=== PATIENT | female | born 1990 | race Caucasian/White ===

== ENCOUNTER 2017-03-04 23:31 | Emergency (ER) | payer BC, OTHER ==
[2017-03-05] MEDS: NS 1,000 ML IV (00:45)
[2017-03-05] MEDS: ONDANSETRON 4MG/2ML VIAL (J2405) IV (00:45)
[2017-03-05 01:29] LABS: BASO % 0.2 % (0.0-1.0); EOS # 0.1 10^3/uL (0.0-0.50); EOS % 1.8 % (0.0-3.0); HEMATOCRIT 38.5 % (36.0-47.0); HEMOGLOBIN 12.9 g/dl (12.0-16.0); IMMATURE GRANULOCYTE % 0.4 % (0-0); LYMPH # 1.3 10^3/uL (1.5-6.5); LYMPH % 28.6 % (24.0-44.0); MEAN CORPUSCULAR HEMOGLOBIN 30.2 pg (27.0-33.0); MEAN CORPUSCULAR HGB CONC 33.5 g/dl (32.0-36.5); MEAN CORPUSCULAR VOLUME 90.2 fl (80.0-96.0); MONO # 0.3 10^3/uL (0.0-0.8); NEUTROPHILS # 2.8 10^3/uL (1.8-7.7); PLATELET COUNT, AUTOMATED 168 10^3/uL (150-450); RED BLOOD COUNT 4.27 10^6/uL (4.00-5.40); RED CELL DISTRIBUTION WIDTH 12.7 % (11.5-14.5); WHITE BLOOD COUNT 4.6 10^3/uL (4.0-10.0)
[2017-03-05] MEDS: MORPHINE 2 MG/ML 1ML SYRINGE IV (01:32)
[2017-03-05 02:02] LABS: ALBUMIN 3.8 GM/DL (3.2-5.2); ALBUMIN/GLOBULIN RATIO 1.06 (1.00-1.93); ALKALINE PHOSPHATASE 83 U/L (45-117); ALT/SGPT 23 U/L (12-78); ANION GAP 6 MEQ/L (8-16); AST/SGOT 15 U/L (7-37); BILIRUBIN,DIRECT < 0.1 MG/DL (0.0-0.2); BILIRUBIN,TOTAL 0.3 MG/DL (0.2-1.0); BLOOD UREA NITROGEN 12 MG/DL (7-18); CALCIUM LEVEL 8.2 MG/DL (8.5-10.1); CARBON DIOXIDE LEVEL 28 MEQ/L (21-32); CHLORIDE LEVEL 105 MEQ/L (98-107); CREATININE FOR GFR 0.68 MG/DL (0.55-1.02); GLOMERULAR FILTRATION RATE > 60.0 (>60); GLUCOSE, FASTING 82 MG/DL (70-105); LIPASE 75 U/L (73-393); POTASSIUM SERUM 3.3 MEQ/L (3.5-5.1); SODIUM LEVEL 139 MEQ/L (136-145); TOTAL PROTEIN 7.4 GM/DL (6.4-8.2)
[2017-03-05] MEDS ORDERED: ISOVUE-370 76% 100ML VIAL (Q9967) As Ordered (02:11)
[2017-03-05 02:26] LABS: AMORPHOUS SEDIMENT RFX SMALL (NEGATIVE); KETONE, URINE AUTO RFX TRACE mg/dL (NEGATIVE); LEUKOCYTE ESTERASE UR AUTO RFX 2+ (NEGATIVE); MUCUS, URINE RFX LARGE (NEGATIVE); NITRITE, URINE AUTO RFX POSITIVE (NEGATIVE); RBC, URINE AUTO RFX 58 /HPF (0-3); SPECIFIC GRAVITY UR AUTO RFX 1.028 (1.002-1.035); SQUAM EPITHELIAL CELL UR AURFX 2 /HPF (0-6); WBC, URINE AUTO RFX 40 /HPF (0-3)
[2017-03-05 06:09] LABS: CHLAMYDIA DNA AMPLIFICATION NEGATIVE (NEGATIVE); GC DNA AMPLIFICATION NEGATIVE (NEGATIVE)
== END 2017-03-05 04:52 | disposition home or self-care (01) ==
LOC: M ED 23:31
DX: K52.9 Noninfective gastroenteritis and colitis, unspecified (principal); R76.11 Nonspecific reaction to tuberculin skin test without active tuberculosis; Z79.899 Other long term (current) drug therapy; F17.210 Nicotine dependence, cigarettes, uncomplicated
CPT/HCPCS: J2405

== ENCOUNTER 2017-11-26 07:11 | Day surgery (SDC) | payer BC, OTHER ==
[~2017-11-26 07:11] MED LIST: LIDOCAINE 2% INJ 100 MG/5 ML SDV (FOR ANES.) As Ordered; PROPOFOL 200 MG/20 ML VIAL As Ordered; SIMETHICONE 40MG/0.6ML DROPS 30ML As Ordered
[2017-11-26] MEDS: NS 1,000 ML IV (07:23)
[2017-11-26] MEDS ORDERED: PROPOFOL 200 MG/20 ML VIAL As Ordered (07:50)
== END 2017-11-26 08:34 | disposition home or self-care (01) ==
LOC: M OPP 07:11
DX: R19.7 Diarrhea, unspecified (principal); R93.3 Abnormal findings on diagnostic imaging of other parts of digestive tract; K59.00 Constipation, unspecified; K64.8 Other hemorrhoids; K21.9 Gastro-esophageal reflux disease without esophagitis; R12 Heartburn; F17.210 Nicotine dependence, cigarettes, uncomplicated; Z79.899 Other long term (current) drug therapy; Z80.1 Family history of malignant neoplasm of trachea, bronchus and lung
CPT/HCPCS: 45380

== ENCOUNTER → 2018-06-27 | Outpatient (CLI) | payer BC, OTHER ==
[~2018-06-27] MED LIST changes: +ATIV1TAB10 PO; +COLA100C5 PO; +ISON100I PO; -LIDOCAINE 2% INJ 100 MG/5 ML SDV (FOR ANES.) As Ordered; +MACR100C43 PO; -PROPOFOL 200 MG/20 ML VIAL As Ordered; -SIMETHICONE 40MG/0.6ML DROPS 30ML As Ordered; +VARE1TA PO; +VITA100054 PO; +VITA50TA43 PO; +ZOFR4TAB14 PO
[2018-06-27 16:54] LABS: BASO # 0.1 10^3/uL (0.0-0.2); BASO % 0.6 % (0.0-1.0); EOS # 0.2 10^3/uL (0.0-0.50); EOS % 2.5 % (0.0-3.0); HEMATOCRIT 40.1 % (36.0-47.0); HEMOGLOBIN 13.3 g/dl (12.0-15.5); LYMPH # 2.3 10^3/uL (1.5-6.5); LYMPH % 26.8 % (24.0-44.0); MEAN CORPUSCULAR HGB CONC 33.2 g/dl (32.0-36.5); MEAN CORPUSCULAR VOLUME 87.6 fl (80.0-96.0); MONO # 0.7 10^3/uL (0.0-0.8); NEUTROPHILS # 5.3 10^3/uL (1.8-7.7); NEUTROPHILS % 61.7 % (36.0-66.0); PLATELET COUNT, AUTOMATED 256 10^3/uL (150-450); RED BLOOD COUNT 4.58 10^6/uL (4.00-5.40); WHITE BLOOD COUNT 8.5 10^3/uL (4.0-10.0)
[2018-06-27 17:18] LABS: ALBUMIN 3.6 GM/DL (3.2-5.2); ALT/SGPT 34 U/L (12-78); BILIRUBIN,TOTAL 0.2 MG/DL (0.2-1.0); BLOOD UREA NITROGEN 13 MG/DL (7-18); CALCIUM LEVEL 8.9 MG/DL (8.5-10.1); CARBON DIOXIDE LEVEL 29 MEQ/L (21-32); CHLORIDE LEVEL 107 MEQ/L (98-107); CREATININE FOR GFR 0.72 MG/DL (0.55-1.30); GLOMERULAR FILTRATION RATE > 60.0 (>60); GLUCOSE, FASTING 92 MG/DL (70-100); POTASSIUM SERUM 3.9 MEQ/L (3.5-5.1); SODIUM LEVEL 142 MEQ/L (136-145); TOTAL PROTEIN 7.2 GM/DL (6.4-8.2)
--- NOTE | 2018-06-28 07:58 | REP ---
Clinical: Dyspnea. Technique: Axial noncontrast images from the thoracic inlet to the upper abdomen with coronal and sagittal re-formations. Findings: The bilateral lung martínez are relatively symmetric, well aerated, and clear. No consolidation, effusion, or pneumothorax. Tracheobronchial tree is patent and without bronchiectasis. There is a 2.5 mm noncalcified nodule along the periphery of the left lung (image 53). No further nodule or mass lesion identified. Mediastinum demonstrates normal thoracic aorta, pulmonary vasculature and heart/pericardium. No obvious axillary, hilar, or mediastinal adenopathy. Surrounding musculoskeletal structures are intact and normal. Impression: 1. No obvious acute pleuroparenchymal process. 2. 2.5 mm noncalcified nodule along the periphery of the left lung likely insignificant and may represent small chronic scar. Based on set criteria, low-risk patient is require no further investigation while high risk patient may warrant annual follow-up CT. Electronically Signed by Reji Varma MD 06/28/2018 07:48 A
== END ==
LOC: M RAD 15:17
PROVIDERS: ATTEND Internal Medicine
DX: R76.11 Nonspecific reaction to tuberculin skin test without active tuberculosis (principal); R06.00 Dyspnea, unspecified

== ENCOUNTER → 2018-10-13 | Outpatient (CLI) | payer BC, OTHER ==
[2018-10-13 09:23] LABS: THYROID STIMULATING HORMONE 3.71 uIU/ML (0.358-3.740)
[2018-10-13 10:55] LABS: ESTRADIOL 1031.3 PG/ML
[2018-10-13 11:17] LABS: PROGESTERONE 52.89 NG/ML
== END ==
LOC: M LAB 08:19
PROVIDERS: ATTEND Obstetrics & Gynecology Reproductive Endocrinology
DX: E28.9 Ovarian dysfunction, unspecified (principal)

== ENCOUNTER → 2018-10-20 | Outpatient (CLI) | payer BC, OTHER ==
[2018-10-20 09:40] LABS: HCG, SERUM QUANTITATIVE < 1.0 MIU/ML
[2018-10-20 10:03] LABS: PROGESTERONE 50.56 NG/ML
== END ==
LOC: M LAB 08:27
PROVIDERS: ATTEND Obstetrics & Gynecology Reproductive Endocrinology
DX: Z32.00 Encounter for pregnancy test, result unknown (principal)

== ENCOUNTER → 2019-01-04 | Outpatient (CLI) | payer BC, OTHER ==
[2019-01-04 19:15] LABS: BASO # 0.1 10^3/uL (0.0-0.2); BASO % 0.7 % (0.0-1.0); EOS # 0.2 10^3/uL (0.0-0.5); HEMATOCRIT 39.8 % (36.0-47.0); HEMOGLOBIN 12.5 g/dl (12.0-15.5); LYMPH # 2.6 10^3/uL (1.5-5.0); LYMPH % 30.6 % (24.0-44.0); MEAN CORPUSCULAR HEMOGLOBIN 28.2 pg (27.0-33.0); MEAN CORPUSCULAR HGB CONC 31.4 g/dl (32.0-36.5); MEAN CORPUSCULAR VOLUME 89.6 fl (80.0-96.0); MONO # 0.6 10^3/uL (0.0-0.8); MONO % 7.5 % (0.0-5.0); NEUTROPHILS % 58.7 % (36.0-66.0); PLATELET COUNT, AUTOMATED 273 10^3/uL (150-450); RED BLOOD COUNT 4.44 10^6/uL (4.00-5.40); WHITE BLOOD COUNT 8.6 10^3/uL (4.0-10.0)
[2019-01-04 20:16] LABS: ALBUMIN 3.6 GM/DL (3.2-5.2); ALT/SGPT 44 U/L (12-78); BILIRUBIN,TOTAL 0.2 MG/DL (0.2-1.0); BLOOD UREA NITROGEN 11 MG/DL (7-18); CALCIUM LEVEL 8.2 MG/DL (8.5-10.1); CARBON DIOXIDE LEVEL 26 MEQ/L (21-32); CHLORIDE LEVEL 105 MEQ/L (98-107); CREATININE FOR GFR 0.76 MG/DL (0.55-1.30); GLOMERULAR FILTRATION RATE > 60.0 (>60); GLUCOSE, FASTING 86 MG/DL (70-100); IRON (FE) 51 UG/DL (50-170); SODIUM LEVEL 139 MEQ/L (136-145); TOTAL 25(OH) VITAMIN D 19.2 NG/ML (30.0-100.0); VITAMIN B12 LEVEL 439 PG/ML (247-911)
== END ==
LOC: M LAB 17:48
PROVIDERS: ATTEND Internal Medicine
DX: E55.9 Vitamin D deficiency, unspecified (principal); R53.83 Other fatigue

== ENCOUNTER 2019-04-14 16:09 | Emergency (ER) | payer BC, OTHER ==
[~2019-04-14] VITALS: Ht 160 cm; Wt 85.0 kg
[2019-04-14] MEDS ORDERED: VITA50005 (16:17)
[2019-04-14] MEDS ORDERED: MELO15TA28 (16:17)
[2019-04-14] MEDS ORDERED: LEVO50TA5 (16:17)
[2019-04-14 17:29] LABS: APPEARANCE, URINE HAZY (CLEAR); BACTERIA, URINE AUTO NEGATIVE (NEGATIVE); BILIRUBIN, URINE AUTO NEGATIVE (NEGATIVE); BLOOD, URINE BLOOD 3+ (NEGATIVE); COLOR, URINE YELLOW (YELLOW); GLUCOSE, URINE (UA) AUTO NEGATIVE (NEGATIVE); KETONE, URINE AUTO NEGATIVE (NEGATIVE); LEUKOCYTE ESTERASE, URINE AUTO NEGATIVE (NEGATIVE); MUCUS, URINE SMALL (NEGATIVE); NITRITE, URINE AUTO NEGATIVE (NEGATIVE); PROTEIN, URINE AUTO NEGATIVE (NEGATIVE); RBC, URINE AUTO 45 /HPF (0-3); SQUAMOUS EPITHELIAL CELL UR AU 2 /HPF (0-6); UROBILINOGEN, URINE AUTO 0.2 mg/dL (0.0-2.0); WBC, URINE AUTO 1 /HPF (0-3)
[2019-04-14] MEDS ORDERED: NS 1,000 ML IV ONE (18:00)
[2019-04-14] MEDS ORDERED: ONDANSETRON 4MG/2ML VIAL (J2405) IV ONE (18:00)
[2019-04-14] MEDS ORDERED: KETOROLAC 30 MG/ML VIAL (J1885) IV ONE (18:00)
[2019-04-14] MEDS ORDERED: PANTOPRAZOLE 40MG INJ (PROTONIX) (C9113) IV ONE (18:00)
[2019-04-14 18:23] LABS: BASO % 0.3 % (0.0-1.0); EOS # 0.1 10^3/uL (0.0-0.5); EOS % 0.9 % (0.0-3.0); HEMATOCRIT 42.5 % (36.0-47.0); HEMOGLOBIN 13.8 g/dl (12.0-15.5); LYMPH % 14.5 % (24.0-44.0); MEAN CORPUSCULAR HEMOGLOBIN 27.9 pg (27.0-33.0); MEAN CORPUSCULAR HGB CONC 32.5 g/dl (32.0-36.5); MONO # 0.3 10^3/uL (0.0-0.8); MONO % 3.8 % (0.0-5.0); NEUTROPHILS # 5.5 10^3/uL (1.5-8.5); NEUTROPHILS % 80.2 % (36.0-66.0); PLATELET COUNT, AUTOMATED 205 10^3/uL (150-450); RED BLOOD COUNT 4.94 10^6/uL (4.00-5.40); WHITE BLOOD COUNT 6.8 10^3/uL (4.0-10.0)
[2019-04-14 18:48] LABS: ALBUMIN 3.9 GM/DL (3.2-5.2); ALT/SGPT 32 U/L (12-78); BILIRUBIN,DIRECT 0.2 MG/DL (0.0-0.2); BILIRUBIN,TOTAL 0.5 MG/DL (0.2-1.0); BLOOD UREA NITROGEN 11 MG/DL (7-18); CALCIUM LEVEL 8.5 MG/DL (8.5-10.1); CARBON DIOXIDE LEVEL 26 MEQ/L (21-32); CHLORIDE LEVEL 104 MEQ/L (98-107); CREATININE FOR GFR 0.74 MG/DL (0.55-1.30); GLOMERULAR FILTRATION RATE > 60.0 (>60); GLUCOSE, FASTING 84 MG/DL (70-100); LIPASE 50 U/L (73-393); POTASSIUM SERUM 3.3 MEQ/L (3.5-5.1); SODIUM LEVEL 138 MEQ/L (136-145); TOTAL PROTEIN 7.3 GM/DL (6.4-8.2)
[2019-04-14 18:52] LABS: INR 1.07; PROTHROMBIN TIME 13.7 SECONDS (11.8-14.0)
--- NOTE | 2019-04-14 19:26 | REP ---
ABDOMINAL SERIES: Supine and erect views of the abdomen demonstrate no free air. There is no definite evidence of obstruction. Mild air is scattered throughout the colon. A few mildly dilated small bowel loops are seen in the left upper quadrant, possibly representing a mild focal ileus. No abnormal calcifications are seen. An frontal view of the chest demonstrates no acute infiltrate. Heart and mediastinum are within normal limits. IMPRESSION: No free air and no definite evidence for small bowel obstruction. A few mildly dilated small bowel loops in the left upper quadrant may represent a mild focal ileus. Electronically Signed by Rafael Berry MD 04/14/2019 07:28 P
[2019-04-14] MEDS ORDERED: ZOFR4TAB16 PO (19:30)
[2019-04-14 20:00] VITALS: BP 97/54
[2019-04-14] MEDS ORDERED: ONDANSETRON 4 MG ORAL DISINTEGRATING TAB (Q0162 PER 1MG) PO ONE (20:15)
== END 2019-04-14 20:10 | disposition home or self-care (01) ==
LOC: M ED 16:09
DX: A08.4 Viral intestinal infection, unspecified (principal); J45.909 Unspecified asthma, uncomplicated; Z79.899 Other long term (current) drug therapy; F17.210 Nicotine dependence, cigarettes, uncomplicated
CPT/HCPCS: 74021; 80048; 80076; 81001; 83690; 85025; 85610; 96361; 96374; 96375; 99284; C9113; J1885; J2405; Q0162

== ENCOUNTER 2019-11-17 19:01 | Emergency (ER) | payer OTHER, BC ==
[~2019-11-17] VITALS: Ht 160 cm; Wt 75.0 kg
[~2019-11-17 19:01] MED LIST changes: +LEVO50TA5; +MELO15TA28; +VITA50005; +ZOFR4TAB16 PO
[2019-11-17] MEDS ORDERED: DIAZ2TAB PO (19:09)
[2019-11-17] MEDS ORDERED: IRON1TAB2 PO (19:09)
[2019-11-17] MEDS ORDERED: CYCL-707 PO (19:09)
--- NOTE | 2019-11-17 20:00 | REPVR ---
PROCEDURE INFORMATION: Exam: XR Right Hand Exam date and time: 11/17/2019 7:56 PM Age: 28 years old Clinical indication: Pain; Hand; Right; Additional info: Trauma TECHNIQUE: Imaging protocol: XR Right hand. Views: 3 or more views. COMPARISON: No relevant prior studies available. FINDINGS: Bones/joints: Normal. Soft tissues: Normal. IMPRESSION: No acute findings. Electronically signed by: John Dye On 11/17/2019 20:00:40 PM
[2019-11-17 20:32] VITALS: BP 116/72
== END 2019-11-17 20:34 | disposition home or self-care (01) ==
LOC: M ED 19:01
DX: M79.641 Pain in right hand (principal); F17.200 Nicotine dependence, unspecified, uncomplicated; Z79.899 Other long term (current) drug therapy

== ENCOUNTER 2019-12-16 11:50 | Emergency (ER) | payer BC, OTHER ==
[~2019-12-16] VITALS: Ht 160 cm; Wt 77.0 kg
[~2019-12-16 11:50] MED LIST changes: +CYCL-707 PO; +DIAZ2TAB PO; +IRON1TAB2 PO
[2019-12-16 13:15] LABS: BASO % 0.5 % (0.0-1.0); EOS # 0.1 10^3/uL (0.0-0.5); EOS % 1.6 % (0.0-3.0); HEMOGLOBIN 13.8 g/dl (12.0-15.5); LYMPH # 2.2 10^3/uL (1.5-5.0); LYMPH % 25.7 % (24.0-44.0); MEAN CORPUSCULAR HGB CONC 31.4 g/dl (32.0-36.5); MEAN CORPUSCULAR VOLUME 89.4 fl (80.0-96.0); MONO # 0.5 10^3/uL (0.0-0.8); MONO % 5.5 % (0.0-5.0); NEUTROPHILS # 5.8 10^3/uL (1.5-8.5); NEUTROPHILS % 66.5 % (36.0-66.0); PLATELET COUNT, AUTOMATED 279 10^3/uL (150-450); RED BLOOD COUNT 4.92 10^6/uL (4.00-5.40); WHITE BLOOD COUNT 8.7 10^3/uL (4.0-10.0)
[2019-12-16 13:43] LABS: INFLUENZA A AMPLIFICATION NEGATIVE (NEGATIVE); INFLUENZA B AMPLIFICATION NEGATIVE (NEGATIVE)
[2019-12-16 13:49] LABS: ALBUMIN 3.7 GM/DL (3.2-5.2); ALT/SGPT 12 U/L (12-78); BLOOD UREA NITROGEN 6 MG/DL (7-18); CALCIUM LEVEL 10.3 MG/DL (8.5-10.1); CARBON DIOXIDE LEVEL 18 MEQ/L (21-32); CHLORIDE LEVEL 108 MEQ/L (98-107); CK-MB VALUE MASS < 1.0 NG/ML (<3.6); CPK CREATINE PHOSPHOKINASE 34 U/L (26-192); CREATININE FOR GFR 0.35 MG/DL (0.55-1.30); GLOMERULAR FILTRATION RATE > 60.0 (>60); GLUCOSE, FASTING 78 MG/DL (70-100); MB/CK RELATIVE INDEX 2.94 (< OR =4); POTASSIUM SERUM 3.7 MEQ/L (3.5-5.1); SODIUM LEVEL 142 MEQ/L (136-145); TOTAL PROTEIN 6.9 GM/DL (6.4-8.2); TROPONIN I < 0.02 NG/ML (< 0.10)
--- NOTE | 2019-12-16 13:55 | REP ---
INDICATION: cough, sob. COMPARISON: April 14, 2019.. TECHNIQUE: Portable AP sitting view. FINDINGS: The lungs are well inflated and clear. No infiltrate is seen. Pleural angles are sharp. Heart is not enlarged. Pulmonary vasculature is not increased. No significant bony abnormality. IMPRESSION: Negative portable chest x-ray. <Electronically signed by Lance Alexander > 12/16/19 [id number]
[2019-12-16] MEDS ORDERED: ISOVUE-370 76% 100ML VIAL As Ordered ONE (14:18)
[2019-12-16 14:36] VITALS: O2SAT 98
--- NOTE | 2019-12-16 14:54 | REP ---
INDICATION: sob, elevated dimer, r/o PE. COMPARISON: Comparison is made with noncontrast chest CT June 27, 2018.. TECHNIQUE: Contrast dose: 75 ML of Isovue [address] technique: Helical scanning is acquired and overlapping 1.5 mm and contiguous 3 mm axial images are reformatted. In addition, maximum intensity projection and multiplanar re-formation images are generated in sagittal and coronal imaging projections. FINDINGS: There is good opacification of the pulmonary arterial tree. There is no CT evidence of pulmonary embolus. Maximum intensity projection images and source axial images show no vessel cut off or filling defect. There is no evidence of pleural or pericardial effusion. No hilar or mediastinal mass or adenopathy is observed. Lung martínez are clear. There is a 4 mm noncalcified pulmonary nodule in the left lower lobe. This is displayed on axial image number 44 of 87 and series 702 of today's study. no other pulmonary nodules seen. No mass lesion is observed. Bone window settings show no bony destructive lesion. Normal adrenal glands are seen. The visualized upper abdominal structures are otherwise unremarkable. IMPRESSION: No acute disease. No CT evidence of pulmonary embolus. Single 4 mm noncalcified nodule in the left lower lobe of the lung likely granulomatous. This is unchanged from the June 27, 2018 study. Otherwise normal. <Electronically signed by Lance Alexander > 12/16/19 [id number]
[2019-12-16] MEDS ORDERED: MACR100C43 PO (15:14)
[2019-12-16 15:16] LABS: BILIRUBIN,TOTAL < 0.1 MG/DL (0.2-1.0)
[2019-12-16 15:20] VITALS: BP 128/68
--- NOTE | 2019-12-16 21:59 | ECGEPIP ---
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
--- NOTE | 2019-12-20 15:21 | ED PDOC ---
Post-Departure Follow-Up called patient to update on negative COVID-19 test. Pt expressed good understand ing, all questions addressed. EMILIA FISHER TAYLOR E. PA-C Dec 20, 2019 15:21
== END 2019-12-16 15:29 | disposition home or self-care (01) ==
LOC: M ED 11:50
DX: J06.9 Acute upper respiratory infection, unspecified (principal); N39.0 Urinary tract infection, site not specified; R91.1 Solitary pulmonary nodule; K58.9 Irritable bowel syndrome, unspecified; M26.629 Arthralgia of temporomandibular joint, unspecified side
CPT/HCPCS: 36415; 71045; 71275; 80053; 81001; 82550; 82553; 84484; 84702; 85025; 85379; 87088; 87186; 87631; 87880; 93005; 99284; Q9967; U0003

== ENCOUNTER 2020-02-21 14:32 | Emergency (ER) | payer BC, OTHER ==
[~2020-02-21] VITALS: Ht 160 cm; Wt 75.0 kg
[2020-02-21] MEDS ORDERED: ACETAMINOPHEN 325 MG TAB PO ONE (15:30)
[2020-02-21 15:56] VITALS: BP 108/64
== END 2020-02-21 17:07 | disposition home or self-care (01) ==
LOC: M ED 14:32
DX: U07.1 COVID-19 (principal); Z77.098 Contact with and (suspected) exposure to other hazardous, chiefly nonmedicinal, chemicals

== ENCOUNTER → 2020-03-04 | Outpatient (CLI) | payer BC, OTHER ==
--- NOTE | 2020-03-05 09:56 | ECHO ---
DATE OF PROCEDURE: 03/04/2020 Age: 29 Gender: Female Height: 160 Weight: 74 kg REFERRING PHYSICIAN: Reji Ellington M.D. INDICATION: Tachycardia, COVID-19. MEASUREMENTS: IVS 0.8 cm LV 4.2 cm LVPW 0.8 cm LA 3.0 cm Aorta 2.7 cm RV 2.9 cm IVC 0.9 cm DOPPLER MEASUREMENT Mitral E wave velocity 96 Mitral A wave 25 E prime septal 11.0 E prime lateral 13.7 Left atrial volume index 18 mL/m2 FINDINGS: This study is of good technical quality. Underlying sinus rhythm. Normal LV size with normal LV systolic function, estimated LVEF around 60%. The right ventricle also appears to have normal size and systolic function. Both atria appear normal. All four cardiac valves are well seen and appear normal. No pericardial effusion is present. Inferior vena cava is of relatively small size and completely obliterates with inspiration indicative of normal or low central venous pressure. Aortic root, aortic arch, and visualized segment of the abdominal aorta all appear normal. Doppler interrogation reveals competent aortic, mitral, tricuspid, and pulmonic valves. Mitral inflow pattern and tissue Doppler imaging of the mitral annulus reveals normal diastolic function. CONCLUSIONS: 1. Study is of good technical quality. Underlying sinus rhythm with narrow QRS complex. 2. Normal LV size, systolic and diastolic function. 3. Normal RV size and systolic function. 4. No valvular disease. 5. Normal or low central venous pressure. 6. Unable to estimate pulmonary artery pressure, but no signs to suggest pulmonary hypertension. 7. Normal echocardiogram. MTDD
== END ==
LOC: M CARPUL 09:42
PROVIDERS: ATTEND Internal Medicine
DX: U07.1 COVID-19 (principal); R00.0 Tachycardia, unspecified

== ENCOUNTER → 2020-03-06 | Outpatient (CLI) | payer BC, OTHER ==
--- NOTE | 2020-03-07 10:38 | REP ---
INDICATION: DYSPNEA COMPARISON: 12/16/2019 TECHNIQUE: PA and lateral. FINDINGS: The mediastinum and cardiac silhouette are normal. The lung martínez are clear and without acute consolidation, effusion, or pneumothorax. The skeletal structures are intact and normal. IMPRESSION: No acute cardiopulmonary process. <Electronically signed by Reji Varma > 03/07/20 1039
== END ==
LOC: M RAD 12:42
PROVIDERS: ATTEND Internal Medicine
DX: R06.00 Dyspnea, unspecified (principal); U07.1 COVID-19

== ENCOUNTER → 2020-04-03 | Outpatient (CLI) | payer BC, OTHER ==
[~2020-04-03] MED LIST changes: +ISOVUE-370 76% 100ML VIAL As Ordered ONE
--- NOTE | 2020-04-03 10:04 | REP ---
INDICATION: DYSPNEA, TACHYCARDIA. Fatigue. Dyspnea after COVID. COMPARISON: Comparison chest x-ray 06 March 2020. Comparison chest CT study 16 December 2019.. TECHNIQUE: Helical scanning is acquired following the intravenous injection of 75 mL of Isovue 370. Axial 3 mm images are re-formatted. Coronal and sagittal MPR and coronal MIP images are provided. FINDINGS: Digital preliminary customer success associate radiograph is unremarkable. On axial CT images, the lung martínez are well inflated and free of infiltrate. There is a stable benign 4 mm perifissural nodule in the left lower lobe unchanged from [address] No other pulmonary nodule is seen. No lung mass lesion is observed. No pleural or pericardial effusion is seen. No hilar or mediastinal mass or adenopathy is observed. There is good opacification of the pulmonary arterial tree and there is no CT evidence of pulmonary embolus. The thoracic aorta is normal in course caliber and homogeneous and contrast enhancement. There is mild diffuse fatty infiltration of the liver. Normal adrenal glands are seen. The visualized upper abdominal structures are otherwise unremarkable. No extra thoracic mass or adenopathy is seen. No bony destructive lesion is seen. IMPRESSION: No active cardiopulmonary disease. Mild diffuse fatty infiltration of the liver. <Electronically signed by Lance Alexander > 04/03/20 1000
== END ==
LOC: M RAD 09:25
PROVIDERS: ATTEND Internal Medicine
DX: K76.0 Fatty (change of) liver, not elsewhere classified (principal); R00.0 Tachycardia, unspecified; R06.00 Dyspnea, unspecified
CPT/HCPCS: 71260; Q9967

== ENCOUNTER 2022-04-27 15:01 | Emergency (ER) | payer BC, OTHER ==
[~2022-04-27] VITALS: Ht 160 cm; Wt 84.1 kg
[~2022-04-27 15:01] MED LIST changes: +ERGO500029; -ISOVUE-370 76% 100ML VIAL As Ordered ONE; -VITA50005
[2022-04-27] MEDS ORDERED: ONDANSETRON 4MG ORAL DISINTEGRATING TAB PO ONE (15:45)
[2022-04-27 15:53] LABS: BASO % 0.5 % (0.0-1.0); EOS # 0.1 10^3/uL (0.0-0.5); EOS % 1.1 % (0.0-3.0); HEMOGLOBIN 14.1 g/dl (12.0-15.5); LYMPH # 1.3 10^3/uL (1.5-5.0); LYMPH % 23.2 % (24.0-44.0); MEAN CORPUSCULAR HEMOGLOBIN 29.7 pg (27.0-33.0); MEAN CORPUSCULAR HGB CONC 33.6 g/dl (32.0-36.5); MEAN CORPUSCULAR VOLUME 88.6 fl (80.0-96.0); MONO # 0.5 10^3/uL (0.0-0.8); MONO % 8.6 % (2.0-8.0); NEUTROPHILS # 3.7 10^3/uL (1.5-8.5); NEUTROPHILS % 66.4 % (36.0-66.0); PLATELET COUNT, AUTOMATED 216 10^3/uL (150-450); RED BLOOD COUNT 4.74 10^6/uL (4.00-5.40); WHITE BLOOD COUNT 5.6 10^3/uL (4.0-10.0)
[2022-04-27 16:14] LABS: LIPASE 23 U/L (12-53)
[2022-04-27 16:19] LABS: ALBUMIN 3.7 G/DL (3.2-5.2); ALKALINE PHOSPHATASE 92 U/L (46-116); ALT/SGPT 37 U/L (7.0-40); AST/SGOT 40 U/L (<34); BILIRUBIN,TOTAL 0.4 MG/DL (0.3-1.2); BLOOD UREA NITROGEN 10 MG/DL (9-23); CALCIUM LEVEL 8.6 MG/DL (8.5-10.1); CARBON DIOXIDE LEVEL 28 MMOL/L (20-31); CHLORIDE LEVEL 105 MMOL/L (98-107); CREATININE FOR GFR 0.61 MG/DL (0.55-1.30); GLOMERULAR FILTRATION RATE > 60.0 (>60); GLUCOSE, FASTING 120 MG/DL (60-100); POTASSIUM SERUM 3.1 MMOL/L (3.5-5.1); SODIUM LEVEL 140 MMOL/L (136-145); TOTAL PROTEIN 6.6 G/DL (5.7-8.2)
[2022-04-27 16:28] LABS: HCG, SERUM QUALITATIVE NEGATIVE (NEGATIVE)
[2022-04-27] MEDS ORDERED: PROT1TAB2 PO (16:51)
[2022-04-27] MEDS ORDERED: ONDA-83 PO (16:51)
[2022-04-27] MEDS ORDERED: POTASSIUM CHLORIDE 10MEQ SR TABLET PO ONE (16:55)
[2022-04-27 16:57] VITALS: BP 135/85
== END 2022-04-27 17:11 | disposition home or self-care (01) ==
LOC: M ED 15:01
DX: A08.4 Viral intestinal infection, unspecified (principal); K58.9 Irritable bowel syndrome, unspecified; R51.9 Headache, unspecified

== ENCOUNTER 2022-10-22 08:34 | Emergency (ER) | payer BC, OTHER ==
[~2022-10-22] VITALS: Ht 160 cm; Wt 87.2 kg
[~2022-10-22 08:34] MED LIST changes: +ONDA-83 PO; +PROT1TAB2 PO
[2022-10-22] MEDS ORDERED: KETOROLAC 30 MG/ML 1ML VIAL IV ONE (11:25)
[2022-10-22 11:53] LABS: BASO % 0.5 % (0.0-1.0); EOS # 0.2 10^3/uL (0.0-0.5); EOS % 2.5 % (0.0-3.0); HEMATOCRIT 40.7 % (36.0-47.0); HEMOGLOBIN 13.3 g/dl (12.0-15.5); LYMPH # 1.9 10^3/uL (1.5-5.0); LYMPH % 24.4 % (24.0-44.0); MEAN CORPUSCULAR HEMOGLOBIN 29.4 pg (27.0-33.0); MEAN CORPUSCULAR HGB CONC 32.7 g/dl (32.0-36.5); MONO # 0.5 10^3/uL (0.0-0.8); MONO % 6.9 % (2.0-8.0); NEUTROPHILS # 5.1 10^3/uL (1.5-8.5); NEUTROPHILS % 65.3 % (36.0-66.0); PLATELET COUNT, AUTOMATED 270 10^3/uL (150-450); RED BLOOD COUNT 4.52 10^6/uL (4.00-5.40); WHITE BLOOD COUNT 7.9 10^3/uL (4.0-10.0)
[2022-10-22 12:12] LABS: BLOOD UREA NITROGEN 10 MG/DL (9-23); CALCIUM LEVEL 8.1 MG/DL (8.5-10.1); CARBON DIOXIDE LEVEL 26 MMOL/L (20-31); CHLORIDE LEVEL 105 MMOL/L (98-107); CREATININE FOR GFR 0.67 MG/DL (0.55-1.30); GLOMERULAR FILTRATION RATE > 60.0 (>60); GLUCOSE, FASTING 86 MG/DL (60-100); POTASSIUM SERUM 3.9 MMOL/L (3.5-5.1); SODIUM LEVEL 139 MMOL/L (136-145)
[2022-10-22 12:17] LABS: ERYTHROCYTE SEDIMENTATION RATE 34 mm/hr (0-20)
[2022-10-22 13:09] VITALS: BP 110/62; TEMP 98; O2SAT 99
== END 2022-10-22 13:14 | disposition home or self-care (01) ==
LOC: M ED 08:34
DX: H92.01 Otalgia, right ear (principal); R51.9 Headache, unspecified; K58.9 Irritable bowel syndrome, unspecified; E03.9 Hypothyroidism, unspecified; G90.A Postural orthostatic tachycardia syndrome [POTS]; Z88.7 Allergy status to serum and vaccine; Z88.8 Allergy status to other drugs, medicaments and biological substances; Z79.899 Other long term (current) drug therapy
CPT/HCPCS: 80048; 84702; 85025; 85652; 86140; 96374; 99283; J1885